=== PATIENT | female | born 1990 ===

== ENCOUNTER → 2024-04-15 09:23 | Outpatient (CLI) | payer OTHER | END | disposition home or self-care (01) | LOC: PRENATAL 09:23 | PROVIDERS: ATTEND Obstetrics & Gynecology Maternal & Fetal Medicine | DX: O26.843 Uterine size-date discrepancy, third trimester (principal); O36.8130 Decreased fetal movements, third trimester, not applicable or unspecified; O99.013 Anemia complicating pregnancy, third trimester; Z3A.32 32 weeks gestation of pregnancy ==

== ENCOUNTER 2024-06-03 07:19 | Inpatient (IN) | payer OTHER ==
[2024-06-03] VITALS (7 sets, daily range): BP systolic 114–134; BP diastolic 66–77; O2SAT 99
[~2024-06-03] VITALS: Ht 162.6 cm; Wt 73.5 kg
[2024-06-03 08:38] LABS: HEMATOCRIT 34.8 % (36.0-45.00); HEMOGLOBIN 11.7 g/dL (12.0-15.00); MEAN CELL VOLUME 92.5 fL (80.00-100.00); MEAN CORPUSCULAR HEMOGLOBIN 31.1 pg (27.00-32.0); MEAN CORPUSCULAR HGB CONC 33.6 g/dl (32.0-36.0); PLATELET COUNT 272 K/uL (150-450); RED BLOOD COUNT 3.76 M/uL (4.00-6.00); RED CELL DISTRIBUTION WIDTH 17.2 % (11.5-14.5); URINE APPEARANCE Clear; URINE BILIRRUBIN Negative (NEGATIVE); URINE BLOOD Negative; URINE COLOR Yellow; URINE GLUCOSE Negative (NEGATIVE); URINE KETONE Negative (NEGATIVE); URINE LEUKOCYTE Negative; URINE NITRATE Negative; URINE PROTEIN Negative (NEGATIVE); URINE UROBILINOGEN 0.2 E.U./dl
[2024-06-03 08:42] LABS: URINE BACTERIA 42.8 uL (0.0-1933); URINE EPITHELIAL CELLS 20.6 uL (0.0-38.8); URINE RBC 2.4 uL (0.0-20.8); URINE WBC 8.9 uL (0.0-23.2)
[2024-06-03] MEDS ORDERED: IRON325 MG PO (08:57)
[2024-06-03] MEDS ORDERED: PRENATAL TABLE1 EAC1 PO (08:57)
[2024-06-03] MEDS ORDERED: VALTREX1000 MG PO (08:59)
[2024-06-03] MEDS ORDERED: OXYTOCIN 500 ML IV SCH (09:30)
[2024-06-03 09:48] LABS: INR 0.94; PARTIAL THROMBOPLASTIN TIME 29.3 SECONDS (22.0-34.0); PROTHROMBIN TIME 10.3 SECONDS (9.0-11.5)
[2024-06-03 10:10] LABS: ALBUMIN 2.8 gm/dL (3.4-5.0); BILIRUBIN TOTAL 0.34 mg/dL (0.3-1.2); CALCIUM 9.2 mg/dL (8.5-10.1); CREATININE SERUM 0.46 mg/dL (0.55-1.02); GFR 155.5; GLOBULINA 3.5 G/DL (2.4-3.5); POTASSIUM 3.6 mEq/L (3.5-5.1); TOTAL PROTEIN 6.3 gm/dL (6.4-8.2)
[2024-06-03] MEDS ORDERED: PROMETHAZINE HCL 50 MG/ML AMPUL IM ONE (13:15)
[2024-06-03] MEDS ORDERED: MEPERIDINE HCL/PF 50 MG/ML VIAL IV ONE (13:15)
[2024-06-03] MEDS ORDERED: OXYTOCIN 1,000 ML IV SCH (20:45)
[2024-06-03] MEDS ORDERED: BENZOCAINE/MENTHOL 90 ML BOTTLE TOP PRN (20:45)
[2024-06-03] MEDS ORDERED: CHLORHEXIDINE GLUCONATE 120 ML BOTTLE TOP SCH (20:45)
[2024-06-03] MEDS ORDERED: IBUprofen 400 MG TABLET PO PRN (20:45)
[2024-06-03] MEDS ORDERED: ACETAMINOPHEN 500 MG GEL..CAP PO PRN (20:45)
[2024-06-03] MEDS ORDERED: ERYTHROMYCIN BASE OPHT 1GM EACH TUBE OP ONE (22:45)
[2024-06-03] MEDS ORDERED: LIDOCAINE HCL 1% 10ML VIAL IJ ONE (22:45)
[2024-06-04 00:45] VITALS: BP 116/71
[2024-06-04 08:22] VITALS: BP 109/69
[2024-06-04] MEDS ORDERED: FF) RHO(D) IMMUNE GLOBULIN (POM) IM NR (08:45)
[2024-06-04] MEDS ORDERED: DOCUSATE SODIUM 100MG CAP PO SCH (09:00)
[2024-06-04 13:53] VITALS: BP 111/67
[2024-06-04 16:00] VITALS: BP 103/62
[2024-06-05] VITALS: BP 119/80
[2024-06-05 08:50] VITALS: BP 103/69
== END 2024-06-05 17:38 | disposition home or self-care (01) | DRG 807 ==
LOC: LDR 07:19 → OB/GYN 22:24
PROVIDERS: ADMIT Obstetrics & Gynecology; ATTEND Obstetrics & Gynecology
PROC: 10E0XZZ Delivery of Products of Conception, External Approach (ICD-10-PCS; principal; 2024-06-03)
PROC: 0KQM0ZZ Repair Perineum Muscle, Open Approach (ICD-10-PCS; 2024-06-03)
PROC: 4A1HXCZ Monitoring of Products of Conception, Cardiac Rate, External Approach (ICD-10-PCS; 2024-06-03)
DX: O70.1 Second degree perineal laceration during delivery (principal); Z37.0 Single live birth; Z3A.39 39 weeks gestation of pregnancy; Z20.822 Contact with and (suspected) exposure to COVID-19